=== PATIENT | female | born 1965 | race African-American/Black ===

== ENCOUNTER 2019-02-26 10:27 | Emergency (ER) | payer MEDICARE, MEDICAID ==
[~2019-02-26] VITALS: Ht 167.6 cm; Wt 70.0 kg
[2019-02-26] MEDS ORDERED: KETOROLAC 60MG/2ML VIAL IM ONE (14:45)
[2019-02-26 15:46] LABS: CLARITY URINE CLEAR (CLEAR); COLOR URINE YELLOW (YELLOW); KETONES URINE NEGATIVE (NEGATIVE); LEUKOCYTE ESTERASE URINE TRACE (NEGATIVE); NITRITE URINE NEGATIVE (NEGATIVE); OCCULT BLOOD URINE NEGATIVE (NEGATIVE); PH URINE 5.5 (4.5-8.0); PROTEIN URINE NEGATIVE (NEGATIVE); SPECIFIC GRAVITY URINE 1.015 (1.005-1.030); UROBILINOGEN URINE 0.2 E.U./dL (0.2-1.0)
[2019-02-26 16:16] VITALS: BP 124/75
== END 2019-02-26 16:14 | disposition home or self-care (01) ==
LOC: ER 10:49
DX: M25.562 Pain in left knee (principal); M25.561 Pain in right knee; M25.462 Effusion, left knee; M25.461 Effusion, right knee
CPT/HCPCS: 73562; 81003; 81025; 96372; 99284; J1885

== ENCOUNTER 2019-05-10 23:34 | Emergency (ER) | payer MEDICARE, MEDICAID ==
[~2019-05-10] VITALS: Ht 162.6 cm; Wt 66.0 kg
[2019-05-11] MEDS ORDERED: ONDANSETRON 4MG ODT PO ONE (00:15)
[2019-05-11 00:45] VITALS: BP 114/82
== END 2019-05-11 00:46 | disposition home or self-care (01) ==
LOC: ER 23:34
DX: R11.0 Nausea (principal); T50.7X5A Adverse effect of analeptics and opioid receptor antagonists, initial encounter; Y92.89 Other specified places as the place of occurrence of the external cause; R03.0 Elevated blood-pressure reading, without diagnosis of hypertension; M19.90 Unspecified osteoarthritis, unspecified site
CPT/HCPCS: 99282; Q0162

== ENCOUNTER 2022-04-16 14:33 | Emergency (ER) | payer MEDICARE, MEDICAID ==
[~2022-04-16] VITALS: Ht 165.1 cm; Wt 79.0 kg
[~2022-04-16 14:33] MED LIST: HYDR-4001 MT
[2022-04-16 14:41] VITALS: BP 149/79
== END 2022-04-16 18:32 | disposition home or self-care (01) ==
LOC: ER 15:00
DX: Z45.2 Encounter for adjustment and management of vascular access device (principal); Z86.19 Personal history of other infectious and parasitic diseases; E11.9 Type 2 diabetes mellitus without complications
CPT/HCPCS: 99281

== ENCOUNTER 2022-05-21 09:25 | Emergency (ER) | payer MEDICARE, MEDICAID ==
[~2022-05-21] VITALS: Ht 165.1 cm; Wt 78.0 kg
[2022-05-21] MEDS ORDERED: IBUPROFEN 400MG TABLET PO ONE (12:00)
[2022-05-21 14:00] VITALS: BP 110/60
[2022-05-21] MEDS ORDERED: IBUP-2028 PO (14:03)
== END 2022-05-21 14:12 | disposition home or self-care (01) ==
LOC: ER 09:25
DX: Z93.4 Other artificial openings of gastrointestinal tract status (principal)
CPT/HCPCS: 99282

== ENCOUNTER 2022-08-31 15:55 | Inpatient (IN) | payer MEDICARE, MEDICAID ==
[~2022-08-31] VITALS: Ht 170.2 cm; Wt 79.4 kg
[~2022-08-31 15:55] MED LIST changes: +ASPI-1153 PO; +IBUP-2028 PO
[2022-08-31] MEDS ORDERED: SODIUM CHLORIDE 0.9% 1000ML BAG (SEPSIS BOLUS) IV ONE (16:30)
[2022-08-31] MEDS ORDERED: PIPERACILLIN/TAZ 3.375G PREMIX 50 ML IV ONE (16:45)
[2022-08-31] MEDS: VANCOMYCIN 1.25GM PMX (XELLIA) 250 ML IV SCH (16:45)
[2022-08-31 17:29] LABS: CHLORIDE 101 mEq/L (98-107); HEMATOCRIT. 32.8 % (36.0-48.0); HEMOGLOBIN. 10.2 g/dL (12.0-16.0); MEAN CORPUSCULAR HEMOGLOBIN 23.5 pg (28.0-32.0); MEAN CORPUSCULAR VOLUME 75.4 fL (81.0-99.0); MEAN PLATELET VOLUME 8.8 fl (7.4-10.4); PLATELET 460 x1000/uL (130-400); RED BLOOD CELL COUNT 4.35 mill/uL (4.2-5.4); RED CELL DISTRIBUTION WIDTH 17.8 % (11.6-14.6)
[2022-08-31 17:32] LABS: INR 1.2
[2022-08-31] MEDS ORDERED: ONDANSETRON HCL 4MG/2ML INJ IV ONE (18:45)
[2022-08-31] MEDS ORDERED: MORPHINE SULFATE 4 MG/ML CPJ (NOT FOR IM USE) IV ONE (18:45)
[2022-08-31 19:39] LABS: CLARITY URINE CLEAR (CLEAR); COLOR URINE YELLOW (YELLOW); KETONES URINE TRACE (NEGATIVE); LEUKOCYTE ESTERASE URINE 2+ (NEGATIVE); NITRITE URINE NEGATIVE (NEGATIVE); OCCULT BLOOD URINE NEGATIVE (NEGATIVE); PH URINE 5.5 (4.5-8.0); PROTEIN URINE NEGATIVE (NEGATIVE); SPECIFIC GRAVITY URINE 1.012 (1.005-1.030)
[2022-08-31 20:42] LABS: PLATELET ESTIMATE INCREASED
[2022-08-31] MEDS ORDERED: IOHEXOL-300 100 ML BOTTLE ONE (22:25)
[2022-09-01] VITALS (18 sets, daily range): BP systolic 90–117; BP diastolic 46–60
[2022-09-01] MEDS ORDERED: PNEUMOCOCCAL 23-VAL P-SAC VAC 0.5 ML IM ONE (03:00)
[2022-09-01] MEDS ORDERED: INFLUENZA VACCINE 05/PF 0.5 ML SYRINGE IM ONE (03:00)
[2022-09-01] MEDS ORDERED: DEXTROSE 50% WATER 50ML SYRINGE IV PRN (03:45)
[2022-09-01] MEDS: DEXT 5%/0.45% NACL 1000ML 1,000 ML IV SCH ×2 (04:43→17:15)
[2022-09-01] MEDS: VANCOMYCIN 1.25GM PMX (XELLIA) 250 ML IV SCH ×2 (04:43→16:45)
[2022-09-01] MEDS: BLOOD SUGAR DIAGNOSTIC STRIP TEST SCH ×2 (06:28→12:17)
[2022-09-01] MEDS ORDERED: NALOXONE HCL 0.4MG/ML VIAL IV PRN (07:15)
[2022-09-01] MEDS: INSULIN LISPRO 100 UNITS/ML SUBCUT SCH ×2 (07:38→12:17)
[2022-09-01] MEDS ORDERED: LIDOCAINE HCL 1% 50ML VIAL (10MG/ML) ONE (09:14)
[2022-09-01] MEDS ORDERED: SODIUM BICARBONATE 4% (2.4MEQ) 5ML VIAL IV ONE ×2 (09:14→10:18)
[2022-09-01] MEDS ORDERED: FENTANYL CITRATE/PF 50MCG/ML 2ML VIAL ONE (10:16)
[2022-09-01] MEDS ORDERED: LIDOCAINE HCL 1% 10 MG/ML 10ML VIAL ONE (10:18)
[2022-09-01] MEDS ORDERED: LIDOCAINE HCL 1% 30ML VIAL (10MG/ML) ONE (10:18)
[2022-09-01] MEDS ORDERED: MIDAZOLAM HCL 2 MG/2 ML VIAL ONE (10:42)
[2022-09-01] MEDS ORDERED: MIDAZOLAM HCL 5 MG/5 ML VIAL IV ONE (11:00)
[2022-09-01] MEDS ORDERED: FENTANYL CITRATE/PF 50MCG/ML 2ML VIAL IV ONE (11:00)
[2022-09-01] MEDS: HYDROCODONE/ACETAMINOPHEN 10/325MG TABLET PO PRN ×2 (12:13→23:56)
[2022-09-01 13:13] LABS: HEMATOCRIT. 26.9 % (36.0-48.0); HEMOGLOBIN. 8.5 g/dL (12.0-16.0); MEAN CORPUSCULAR HEMOGLOBIN 23.5 pg (28.0-32.0); MEAN CORPUSCULAR VOLUME 74.6 fL (81.0-99.0); MEAN PLATELET VOLUME 8.7 fl (7.4-10.4); PLATELET 419 x1000/uL (130-400); RED BLOOD CELL COUNT 3.61 mill/uL (4.2-5.4); RED CELL DISTRIBUTION WIDTH 17.6 % (11.6-14.6)
[2022-09-01 13:57] LABS: PLATELET ESTIMATE SLIGHTLY INCREASED
[2022-09-01] MEDS: PIPERACILLIN/TAZOBACTAM 3.375 G in DEXTROSE 5% WATER 50 ML IV SCH (21:41)
[2022-09-01] MEDS: ONDANSETRON HCL 4MG/2ML INJ IV PRN (21:41)
[2022-09-02] VITALS: BP 91/48
[2022-09-02 04:00] VITALS: BP 95/52
[2022-09-02] MEDS: PIPERACILLIN/TAZOBACTAM 3.375 G in DEXTROSE 5% WATER 50 ML IV SCH ×3 (05:06→22:04)
[2022-09-02] MEDS: ONDANSETRON HCL 4MG/2ML INJ IV PRN (05:07)
[2022-09-02] MEDS: DEXT 5%/0.45% NACL 1000ML 1,000 ML IV SCH ×2 (07:18→20:13)
[2022-09-02 08:00] VITALS: BP 103/60
[2022-09-02 10:21] LABS: HEMATOCRIT. 30.2 % (36.0-48.0); HEMOGLOBIN. 9.5 g/dL (12.0-16.0); MEAN CORPUSCULAR HEMOGLOBIN 23.4 pg (28.0-32.0); MEAN CORPUSCULAR VOLUME 74.8 fL (81.0-99.0); MEAN PLATELET VOLUME 8.7 fl (7.4-10.4); PLATELET 465 x1000/uL (130-400); RED BLOOD CELL COUNT 4.04 mill/uL (4.2-5.4); RED CELL DISTRIBUTION WIDTH 17.7 % (11.6-14.6)
[2022-09-02 11:48] LABS: PLATELET ESTIMATE INCREASED
[2022-09-02 12:00] VITALS: BP 100/62
[2022-09-02 13:17] LABS: CHLORIDE 107 mEq/L (98-107)
[2022-09-02 16:00] VITALS: BP 96/57
[2022-09-02 20:00] VITALS: BP 107/46
[2022-09-03] VITALS: BP 95/59
[2022-09-03 04:00] VITALS: BP 94/56
[2022-09-03] MEDS: PIPERACILLIN/TAZOBACTAM 3.375 G in DEXTROSE 5% WATER 50 ML IV SCH ×3 (05:22→21:21)
[2022-09-03 06:59] LABS: BASOPHILS % 0.5 % (0.0-2.0); EOSINOPHILS % 2.7 % (0.0-5.0); HEMATOCRIT. 27.9 % (36.0-48.0); LYMPHOCYTES % 10.6 % (20.0-50.0); MEAN CORPUSCULAR HEMOGLOBIN 23.9 pg (28.0-32.0); MEAN CORPUSCULAR VOLUME 74.2 fL (81.0-99.0); MEAN PLATELET VOLUME 8.8 fl (7.4-10.4); MONOCYTES % 7.2 % (2.0-8.0); PLATELET 449 x1000/uL (130-400); RED BLOOD CELL COUNT 3.76 mill/uL (4.2-5.4); RED CELL DISTRIBUTION WIDTH 17.8 % (11.6-14.6)
[2022-09-03 08:00] VITALS: BP_SYST 88; BP_SYST 90; BP_SYST 94; BP_DIAS 40; BP_DIAS 46; BP_DIAS 50
[2022-09-03 08:22] LABS: CHLORIDE 108 mEq/L (98-107)
[2022-09-03] MEDS: DEXT 5%/0.45% NACL 1000ML 1,000 ML IV SCH ×2 (10:05→23:25)
[2022-09-03 12:00] VITALS: BP 99/50
[2022-09-03 16:00] VITALS: BP 96/56
[2022-09-03] MEDS ORDERED: LEVO-65 MT (17:46)
[2022-09-03 20:00] VITALS: BP 101/59
[2022-09-03] MEDS: HYDROCODONE/ACETAMINOPHEN 10/325MG TABLET PO PRN (21:21)
[2022-09-04] VITALS: BP 98/52
[2022-09-04 04:00] VITALS: BP 100/49
[2022-09-04] MEDS: PIPERACILLIN/TAZOBACTAM 3.375 G in DEXTROSE 5% WATER 50 ML IV SCH ×2 (05:23→13:46)
[2022-09-04 07:37] VITALS: BP 102/55
[2022-09-04 12:00] VITALS: BP 110/60
[2022-09-04] MEDS: DEXT 5%/0.45% NACL 1000ML 1,000 ML IV SCH (12:40)
[2022-09-04 16:00] VITALS: BP 112/62
[2022-09-04 21:50] VITALS: BP 111/44
== END 2022-09-04 22:30 | disposition home health service (06) | DRG 871 ==
LOC: ER 15:55 → MICUSO 21:34 → ENRESERV 23:12 → 6WST 09-01 01:35
PROVIDERS: ADMIT Internal Medicine; ATTEND Internal Medicine
PROC: 0J9830Z Drainage of Abdomen Subcutaneous Tissue and Fascia with Drainage Device, Percutaneous Approach (ICD-10-PCS; principal; 2022-09-01)
DX: A41.9 Sepsis, unspecified organism (principal); K65.1 Peritoneal abscess; K63.0 Abscess of intestine; D64.9 Anemia, unspecified; E11.9 Type 2 diabetes mellitus without complications; G89.29 Other chronic pain; Z79.891 Long term (current) use of opiate analgesic
CPT/HCPCS: 36415; 71045; 74177; 76942; 80048; 80053; 81003; 82962; 83036; 83605; 84145; 84484; 85025; 86850; 86900; 87075; 87186; 87426; 93005; 97162; 99291; J2250; J2270; J2405; J2543; J3010; J3370; J3490; J7030; J7060; Q9967

== ENCOUNTER 2022-09-11 17:34 | Inpatient (IN) | payer MEDICARE, MEDICAID ==
[~2022-09-11] VITALS: Ht 165.1 cm; Wt 77.1 kg
[~2022-09-11 17:34] MED LIST changes: +LEVO-65 MT
[2022-09-11] MEDS ORDERED: MORPHINE SULFATE 4 MG/ML CPJ (NOT FOR IM USE) IV ONE (21:15)
[2022-09-11] MEDS ORDERED: SODIUM CHLORIDE 0.9% 1,000 ML IV ONE (22:30)
[2022-09-11 22:54] LABS: BASOPHILS % 1.3 % (0.0-2.0); EOSINOPHILS % 2.1 % (0.0-5.0); HEMATOCRIT. 31.3 % (36.0-48.0); LYMPHOCYTES % 18.6 % (20.0-50.0); MEAN CORPUSCULAR HEMOGLOBIN 23.7 pg (28.0-32.0); MEAN CORPUSCULAR VOLUME 74.2 fL (81.0-99.0); MEAN PLATELET VOLUME 7.2 fl (7.4-10.4); MONOCYTES % 7.2 % (2.0-8.0); NEUTROPHILS % 70.8 % (40.0-76.0); PLATELET 821 x1000/uL (130-400); RED BLOOD CELL COUNT 4.22 mill/uL (4.2-5.4); RED CELL DISTRIBUTION WIDTH 18.5 % (11.6-14.6)
[2022-09-11 23:03] LABS: CHLORIDE 102 mEq/L (98-107)
[2022-09-11 23:06] LABS: INR 1.1; PROTHROMBIN TIME 11.4 sec (9.6-11.0)
[2022-09-12] MEDS: MORPHINE SULFATE 4 MG/ML CPJ (NOT FOR IM USE) IV NR ×2 (00:15→03:18)
[2022-09-12] MEDS ORDERED: IOHEXOL-300 100 ML BOTTLE ONE (03:29)
[2022-09-12 09:30] VITALS: BP 110/54
[2022-09-12 10:00] VITALS: BP 110/54
[2022-09-12] MEDS ORDERED: DOCUSATE SODIUM 100MG CAPSULE PO PRN (10:45)
[2022-09-12] MEDS ORDERED: ONDANSETRON HCL 4MG/2ML INJ IV PRN (10:45)
[2022-09-12] MEDS ORDERED: ACETAMINOPHEN 325MG TABLET PO PRN (10:45)
[2022-09-12] MEDS ORDERED: MAGNESIUM/ALUMINUM HYDROXIDE/SIMETHICONE 30ML UDC PO PRN (10:45)
[2022-09-12] MEDS ORDERED: HYDROCODONE/ACETAMINOPHEN 5/325MG TABLET PO PRN (10:45)
[2022-09-12] MEDS ORDERED: CLONIDINE 0.1MG TABLET PO PRN (10:45)
[2022-09-12] MEDS ORDERED: NALOXONE HCL 0.4MG/ML VIAL IV PRN (11:00)
[2022-09-12] MEDS: ENOXAPARIN 40MG/0.4ML SYR SUBCUT SCH (13:27)
[2022-09-12 16:00] VITALS: BP 122/62
[2022-09-12] MEDS: PIPERACILLIN/TAZOBACTAM 3.375 G in DEXTROSE 5% WATER 50 ML IV SCH (22:13)
[2022-09-13 05:30] LABS: BASOPHILS % 1.5 % (0.0-2.0); CHLORIDE 104 mEq/L (98-107); EOSINOPHILS % 3.2 % (0.0-5.0); HEMATOCRIT. 26.9 % (36.0-48.0); HEMOGLOBIN. 8.8 g/dL (12.0-16.0); LYMPHOCYTES % 26.8 % (20.0-50.0); MEAN CORPUSCULAR HEMOGLOBIN 23.9 pg (28.0-32.0); MEAN CORPUSCULAR VOLUME 73.5 fL (81.0-99.0); MEAN PLATELET VOLUME 7.5 fl (7.4-10.4); MONOCYTES % 10.4 % (2.0-8.0); NEUTROPHILS % 58.1 % (40.0-76.0); PLATELET 645 x1000/uL (130-400); RED BLOOD CELL COUNT 3.66 mill/uL (4.2-5.4); RED CELL DISTRIBUTION WIDTH 18.4 % (11.6-14.6)
[2022-09-13] MEDS: PIPERACILLIN/TAZOBACTAM 3.375 G in DEXTROSE 5% WATER 50 ML IV SCH ×3 (06:30→21:15)
[2022-09-13 08:15] VITALS: BP 106/75
[2022-09-13] MEDS: OMEPRAZOLE 20MG CAPSULE EXTENDED RELEASE PO SCH (08:31)
[2022-09-13] MEDS: ENOXAPARIN 40MG/0.4ML SYR SUBCUT SCH (08:31)
[2022-09-13 10:15] VITALS: BP 106/70
[2022-09-13 12:15] VITALS: BP 96/46
[2022-09-13 16:36] VITALS: BP 97/56
[2022-09-13 20:00] VITALS: BP_SYST 89; BP_DIAS 41; BP_DIAS 42
[2022-09-13 20:05] VITALS: BP_SYST 87; BP_SYST 89; BP_DIAS 40; BP_DIAS 42
[2022-09-13] MEDS ORDERED: SODIUM CHLORIDE 0.9% 100 ML IV ONE (21:30)
[2022-09-13] MEDS ORDERED: SODIUM CHLORIDE 0.9% 1,000 ML IV ONE (22:00)
[2022-09-14] VITALS: BP 101/56
[2022-09-14 04:00] VITALS: BP 116/60
[2022-09-14 06:15] LABS: BASOPHILS % 1.1 % (0.0-2.0); EOSINOPHILS % 2.7 % (0.0-5.0); HEMATOCRIT. 28.4 % (36.0-48.0); LYMPHOCYTES % 27.4 % (20.0-50.0); MEAN CORPUSCULAR HEMOGLOBIN 23.5 pg (28.0-32.0); MEAN CORPUSCULAR VOLUME 74.2 fL (81.0-99.0); MEAN PLATELET VOLUME 7.3 fl (7.4-10.4); MONOCYTES % 7.7 % (2.0-8.0); NEUTROPHILS % 61.1 % (40.0-76.0); PLATELET 659 x1000/uL (130-400); RED BLOOD CELL COUNT 3.83 mill/uL (4.2-5.4); RED CELL DISTRIBUTION WIDTH 18.5 % (11.6-14.6)
[2022-09-14] MEDS: OMEPRAZOLE 20MG CAPSULE EXTENDED RELEASE PO SCH (06:28)
[2022-09-14] MEDS: PIPERACILLIN/TAZOBACTAM 3.375 G in DEXTROSE 5% WATER 50 ML IV SCH ×3 (06:28→21:33)
[2022-09-14 08:00] VITALS: BP 97/51
[2022-09-14 08:30] LABS: CHLORIDE 108 mEq/L (98-107)
[2022-09-14] MEDS: ENOXAPARIN 40MG/0.4ML SYR SUBCUT SCH (08:52)
[2022-09-14 12:00] VITALS: BP 90/50
[2022-09-14 16:00] VITALS: BP 97/50
[2022-09-14] MEDS ORDERED: LEVO750T68 MT (16:57)
[2022-09-14] MEDS ORDERED: METR375C2 PO (16:57)
[2022-09-14 20:00] VITALS: BP 92/41
[2022-09-15] VITALS: BP 108/59
[2022-09-15 04:00] VITALS: BP 108/59
[2022-09-15] MEDS: PIPERACILLIN/TAZOBACTAM 3.375 G in DEXTROSE 5% WATER 50 ML IV SCH (06:19)
[2022-09-15] MEDS: OMEPRAZOLE 20MG CAPSULE EXTENDED RELEASE PO SCH (06:19)
[2022-09-15 08:30] VITALS: BP 136/78
[2022-09-15] MEDS: ENOXAPARIN 40MG/0.4ML SYR SUBCUT SCH (08:53)
[2022-09-15 10:47] VITALS: BP 136/78
[2022-09-15 12:00] VITALS: BP 122/64
== END 2022-09-15 13:10 | disposition home or self-care (01) | DRG 603 ==
LOC: ER 17:34 → 6WST 09-12 02:12
PROVIDERS: ADMIT Internal Medicine; ATTEND Internal Medicine
DX: L02.211 Cutaneous abscess of abdominal wall (principal); E11.9 Type 2 diabetes mellitus without complications; D64.9 Anemia, unspecified; B96.20 Unspecified Escherichia coli [E. coli] as the cause of diseases classified elsewhere; G89.29 Other chronic pain
CPT/HCPCS: 36415; 74177; 80048; 80053; 83605; 84145; 85025; 86850; 86900; 99285; J1650; J2270; J2543; J7030; J7060; Q9967

== ENCOUNTER 2024-01-17 17:23 | Emergency (ER) | payer MEDICARE, MEDICAID ==
[~2024-01-17] VITALS: Ht 167.6 cm; Wt 77.0 kg
[~2024-01-17 17:23] MED LIST changes: +LEVO750T68 MT; +METR375C2 PO
[2024-01-17 17:27] VITALS: BP 116/69; PULSE 105; RESP 17; TEMP 97.9; O2SAT 100
[2024-01-17] MEDS: MORPHINE SULFATE 10 MG/ML CPJ IM ONE (18:43)
[2024-01-17] MEDS: KETOROLAC 60MG/2ML VIAL IM ONE (18:44)
[2024-01-17 19:05] LABS: BASOPHILS % 0.5 % (0.0-2.0); EOSINOPHILS % 1.5 % (0.0-5.0); HEMATOCRIT. 39.7 % (36.0-48.0); HEMOGLOBIN. 12.7 g/dL (12.0-16.0); LYMPHOCYTES % 26.4 % (20.0-50.0); MEAN CORPUSCULAR HEMOGLOBIN 27.2 pg (28.0-32.0); MEAN CORPUSCULAR VOLUME 85.1 fL (81.0-99.0); MEAN PLATELET VOLUME 7.8 fl (7.4-10.4); MONOCYTES % 7.8 % (2.0-8.0); NEUTROPHILS % 63.8 % (40.0-76.0); PLATELET 261 x1000/uL (130-400); RED BLOOD CELL COUNT 4.67 mill/uL (4.2-5.4); RED CELL DISTRIBUTION WIDTH 15.1 % (11.6-14.6); WHITE BLOOD COUNT 5.9 x1000/uL (4.5-11.0)
[2024-01-17 19:15] LABS: PARTIAL THROMBOPLASTIN TIME 27.1 sec (23.4-31.0); PROTHROMBIN TIME 10.9 sec (9.6-11.0)
[2024-01-17 19:21] LABS: ALANINE AMINOTRANSFERASE 44 IU/L (10-49); ALBUMIN 4.3 g/dL (3.2-4.8); ASPARTATE AMINOTRANSFERASE 26 IU/L (<34); BILIRUBIN TOTAL 0.5 mg/dL (0.1-1.0); CARBON DIOXIDE 28 mEq/L (21-32); CHLORIDE 108 mEq/L (98-107); CREATININE 0.7 mg/dL (0.6-1.0); GLUCOSE 98 mg/dL (70-105); POTASSIUM 3.6 mEq/L (3.5-5.1); PROTEIN TOTAL 7.4 g/dL (6.0-8.3); SODIUM 142 mEq/L (136-145); UREA NITROGEN BLOOD 14 mg/dL (9-23)
== END 2024-01-17 23:45 | disposition home or self-care (01) ==
LOC: ER 17:46
DX: M54.2 Cervicalgia (principal); E11.9 Type 2 diabetes mellitus without complications; Z85.9 Personal history of malignant neoplasm, unspecified; Z79.899 Other long term (current) drug therapy; V49.49XA Driver injured in collision with other motor vehicles in traffic accident, initial encounter; Y93.89 Activity, other specified; Y92.89 Other specified places as the place of occurrence of the external cause; Y99.8 Other external cause status
CPT/HCPCS: 99285; 70450; 71045; 80053; 83690; 85025; 85610; 85730; 86850; 86900; 86901; 36415; 72125; 71250; 74176; 96372; J1885; J2270

== ENCOUNTER 2025-05-30 18:25 | Inpatient (IN) | payer MEDICARE, MEDICAID ==
[~2025-05-30] VITALS: Ht 165.1 cm; Wt 51.7 kg
[~2025-05-30 18:25] MED LIST changes: -LEVO-65 MT; -LEVO750T68 MT
[2025-05-30 18:57] LABS: BASOPHILS % 0.8 % (0.0-2.0); EOSINOPHILS % 2.6 % (0.0-5.0); HEMATOCRIT. 39.0 % (36.0-48.0); HEMOGLOBIN. 12.3 g/dL (12.0-16.0); LYMPHOCYTES % 25.0 % (20.0-50.0); MEAN PLATELET VOLUME 8.2 fl (7.4-10.4); MONOCYTES % 9.8 % (2.0-8.0); NEUTROPHILS % 61.8 % (40.0-76.0); PLATELET 197 x1000/uL (130-400); RED BLOOD CELL COUNT 4.49 mill/uL (4.2-5.4); RED CELL DISTRIBUTION WIDTH 16.0 % (11.6-14.6)
[2025-05-30 19:09] LABS: CREATININE 0.8 mg/dL (0.6-1.0)
[2025-05-30 19:09] LABS: CLARITY URINE CLEAR (CLEAR); COLOR URINE YELLOW (YELLOW); GLUCOSE URINE NEGATIVE (NEGATIVE); KETONES URINE NEGATIVE (NEGATIVE); LEUKOCYTE ESTERASE URINE TRACE (NEGATIVE); NITRITE URINE NEGATIVE (NEGATIVE); OCCULT BLOOD URINE NEGATIVE (NEGATIVE); PH URINE 5.5 (4.5-8.0); PROTEIN URINE NEGATIVE (NEGATIVE); SPECIFIC GRAVITY URINE 1.018 (1.005-1.030); UROBILINOGEN URINE 0.2 E.U./dL (0.2-1.0)
[2025-05-30 19:10] LABS: UREA NITROGEN BLOOD 14 mg/dL (9-23)
[2025-05-30 19:28] LABS: BACTERIA URINE TRACE; RBC URINE NONE SEEN /hpf (0-2); SQUAMOUS EPITHELIAL CELL URINE RARE /lpf (RARE/1+); WBC URINE 0-2 /hpf (0-2)
[2025-05-30] MEDS ORDERED: MORPHINE SULFATE 4 MG/ML INJ (FOR IV/IM USE) IV ONE (20:00)
[2025-05-30] MEDS ORDERED: ONDANSETRON HCL 4MG/2ML INJ IV ONE (20:00)
[2025-05-30 20:53] LABS: ASPARTATE AMINOTRANSFERASE 22 IU/L (<34); BILIRUBIN DIRECT 0.1 mg/dL (<=3.0); BILIRUBIN TOTAL 0.4 mg/dL (0.1-1.0); PROTEIN TOTAL 7.0 g/dL (6.0-8.3)
[2025-05-30] MEDS: ONDANSETRON HCL 4MG/2ML INJ IV SCH (22:10)
[2025-05-30] MEDS: MORPHINE SULFATE 4 MG/ML INJ (FOR IV/IM USE) IV SCH (22:11)
[2025-05-31] MEDS ORDERED: ONDANSETRON HCL 4MG/2ML INJ IV PRN (01:30)
[2025-05-31] MEDS ORDERED: DEXTROSE 50% WATER 50ML SYRINGE IV PRN (01:30)
[2025-05-31] MEDS ORDERED: NALOXONE HCL 0.4MG/ML VIAL IV PRN (01:30)
[2025-05-31 02:10] VITALS: BP 109/47; PULSE 84; RESP 18; TEMP 36.3; O2SAT 100
[2025-05-31] MEDS: HYDROCODONE/ACETAMINOPHEN 10/325MG TABLET PO PRN (04:22)
[2025-05-31 04:37] VITALS: BP 128/62; PULSE 70; RESP 16; TEMP 37.0296
[2025-05-31] MEDS: BLOOD SUGAR DIAGNOSTIC STRIP TEST SCH (07:00)
[2025-05-31] MEDS: INSULIN LISPRO 100 UNITS/ML SUBCUT SCH (07:30)
[2025-05-31 08:00] VITALS: BP 122/63; PULSE 88; RESP 18; TEMP 36.4; O2SAT 100
[2025-05-31] MEDS: PANTOPRAZOLE SODIUM 40 MG/VIAL IV SCH (08:32)
[2025-05-31] MEDS ORDERED: T3 PO (09:47)
[2025-05-31] MEDS: OXYCODONE HCL/ACETAMINOPHEN 5/325MG TABLET PO PRN (11:56)
[2025-05-31 12:00] VITALS: BP 123/80; PULSE 87; RESP 16; TEMP 36.6; O2SAT 98
[2025-05-31 16:00] VITALS: BP 123/68; PULSE 82; RESP 18; TEMP 36.6; O2SAT 99
[2025-05-31] MEDS ORDERED: MORP15TA54 MT (16:39)
[2025-05-31 20:00] VITALS: BP 109/50; PULSE 100; RESP 18; TEMP 36.2; O2SAT 100
[2025-05-31] MEDS ORDERED: *PATIENT'S OWN MEDICATION STORAGE XX SCH (20:30)
[2025-06-01] VITALS: BP 127/64; PULSE 68; RESP 19; TEMP 36.7; O2SAT 100
[2025-06-01 08:00] VITALS: BP 133/62; PULSE 76; RESP 16; TEMP 36.5; O2SAT 99
[2025-06-01 12:00] VITALS: BP 108/50; PULSE 74; RESP 16; TEMP 36.4; O2SAT 97
[2025-06-01] MEDS ORDERED: MORP15TA54 MT (15:14)
[2025-06-01 16:00] VITALS: BP 101/55; PULSE 18; RESP 18; TEMP 37.2; O2SAT 97
[2025-06-01 20:00] VITALS: BP 128/71; PULSE 80; RESP 18; TEMP 36.7; O2SAT 99
[2025-06-02] VITALS: BP 114/65; PULSE 73; RESP 17; TEMP 36.7; O2SAT 100
[2025-06-02 04:00] VITALS: BP 117/74; PULSE 77; RESP 18; TEMP 36.6; O2SAT 100
[2025-06-02] MEDS ORDERED: MORP15TA54 MT (15:57)
[2025-06-02 17:55] VITALS: BP 120/66; PULSE 98; TEMP 97.9; O2SAT 99
[2025-06-02 18:04] VITALS: BP 120/67; PULSE 98; RESP 18
== END 2025-06-02 19:07 | disposition home or self-care (01) | DRG 948 ==
LOC: ER 18:25 → 8EST 21:19 → EDBEDREQ 21:43 → EDBEDREQTM 21:43 → ENRESERV 22:54
PROVIDERS: ADMIT Internal Medicine; ATTEND Internal Medicine
DX: G89.3 Neoplasm related pain (acute) (chronic) (principal); C25.9 Malignant neoplasm of pancreas, unspecified; E11.9 Type 2 diabetes mellitus without complications; Z85.038 Personal history of other malignant neoplasm of large intestine
CPT/HCPCS: 36415; 74176; 80048; 80076; 81003; 82962; 83036; 85025; 99285; J1815; J2270; J2405; J2470